=== PATIENT | male | born 1975 | race African-American/Black ===

== ENCOUNTER → 2017-10-22 | Outpatient (REF) | payer BC | LOC: M SFHCLERA 18:01 | DX: R50.9 Fever, unspecified (principal) ==

== ENCOUNTER → 2018-01-07 | Outpatient (REF) | payer BC | LOC: M SFHCLERA 18:51 | DX: J02.9 Acute pharyngitis, unspecified (principal) ==

== ENCOUNTER → 2019-01-01 | Outpatient (CLI) | payer BC ==
[2019-01-01 19:30] LABS: BLOOD UREA NITROGEN 11 MG/DL (7-18); CALCIUM LEVEL 8.1 MG/DL (8.5-10.1); CARBON DIOXIDE LEVEL 27 MEQ/L (21-32); CHLORIDE LEVEL 108 MEQ/L (98-107); CREATININE FOR GFR 1.26 MG/DL (0.70-1.30); GLOMERULAR FILTRATION RATE > 60.0 (>60); GLUCOSE, FASTING 90 MG/DL (70-100); POTASSIUM SERUM 4.3 MEQ/L (3.5-5.1); SODIUM LEVEL 142 MEQ/L (136-145)
[2019-01-01 19:39] LABS: TESTOSTERONE 239 NG/DL (241-827)
== END ==
LOC: M WUC 16:53
PROVIDERS: ATTEND Nurse Practitioner Family
DX: R68.82 Decreased libido (principal)

== ENCOUNTER → 2019-01-09 | Outpatient (CLI) | payer BC ==
[2019-01-12 10:24] LABS: TESTOSTERONE FREE (DIRECT) 4.5 pg/mL (6.8-21.5)
== END ==
LOC: M WUC 13:44
PROVIDERS: ATTEND Nurse Practitioner Family
DX: E29.1 Testicular hypofunction (principal)

== ENCOUNTER → 2019-02-03 | Outpatient (CLI) | payer BC ==
[2019-02-03 13:03] LABS: FOLLICLE STIMULATING HORMONE 3.6 mIU/mL (1.4-18.1); LUTEINIZING HORMONE 3.6 mIU/mL (1.5-9.3); PROLACTIN 5.9 NG/ML (2.1-17.7)
== END ==
LOC: M WUC 08:43
PROVIDERS: ATTEND Internal Medicine Endocrinology, Diabetes & Metabolism
DX: E29.1 Testicular hypofunction (principal)

== ENCOUNTER → 2019-02-06 | Outpatient (CLI) | payer BC ==
[2019-02-06 14:33] LABS: PROSTATIC SPECIFIC AG MONITOR 0.6 NG/ML (< 4.00)
[2019-02-12 00:06] LABS: TESTOSTERONE %FREE+WEAKLY BOUN 27.3 % (9.0-46.0); TESTOSTERONE FREE+WEAKLY BOUND 87.4 ng/dL (40.0-250.0); TESTOSTERONE TOTAL 320 ng/dL (264-916)
== END ==
LOC: M WUC 09:19
PROVIDERS: ATTEND Internal Medicine Endocrinology, Diabetes & Metabolism
DX: E29.1 Testicular hypofunction (principal)

== ENCOUNTER → 2019-02-15 | Outpatient (REF) | payer BC ==
[~2019-02-15] MED LIST: AMOX1SUS19 PO; AUGM250S13 PO; CAND4TAB PO; IBUP-1092 PO; LANS30CA PO
== END ==
LOC: M LAB REF 09:44
PROVIDERS: ATTEND Physician Assistant
DX: J03.80 Acute tonsillitis due to other specified organisms (principal)

== ENCOUNTER 2019-02-17 16:33 | Observation (INO) | payer BC ==
[~2019-02-17] VITALS: Ht 180.3 cm; Wt 128.4 kg
[2019-02-17] MEDS ORDERED: AUGM250S13 PO (16:39)
[2019-02-17] MEDS ORDERED: NS 1,000 ML IV ONE (17:30)
[2019-02-17] MEDS ORDERED: AMPICILLIN SOD/SULBACTAM SOD 1.5 GM in D5W MINI-BAG PLUS 50 ML IV ONE (17:30)
[2019-02-17 17:48] LABS: BASO # 0.1 10^3/uL (0.0-0.2); BASO % 0.6 % (0.0-1.0); EOS # 0.2 10^3/uL (0.0-0.50); EOS % 1.8 % (0.0-3.0); HEMATOCRIT 42.2 % (42.0-52.0); LYMPH # 2.3 10^3/uL (1.5-4.5); LYMPH % 18.7 % (24.0-44.0); MEAN CORPUSCULAR HEMOGLOBIN 27.7 pg (27.0-33.0); MEAN CORPUSCULAR HGB CONC 35.5 g/dl (32.0-36.5); MEAN CORPUSCULAR VOLUME 77.9 fl (80.0-96.0); MONO # 0.7 10^3/uL (0.0-0.8); MONO % 5.6 % (0.0-5.0); NEUTROPHILS # 9.2 10^3/uL (1.8-7.7); PLATELET COUNT, AUTOMATED 282 10^3/uL (150-450); RED BLOOD COUNT 5.42 10^6/uL (4.30-6.10); WHITE BLOOD COUNT 12.5 10^3/uL (4.0-10.0)
[2019-02-17 18:06] LABS: INR 1.22; PROTHROMBIN TIME 15.6 SECONDS (12.1-14.4)
[2019-02-17 18:07] LABS: PARTIAL THROMBOPLASTIN TIME 46.2 SECONDS (25.4-37.6)
[2019-02-17 18:17] LABS: ALBUMIN 4.1 GM/DL (3.2-5.2); ALT/SGPT 36 U/L (12-78); BILIRUBIN,DIRECT 0.2 MG/DL (0.0-0.2); BILIRUBIN,TOTAL 1.1 MG/DL (0.2-1.0); BLOOD UREA NITROGEN 9 MG/DL (7-18); CALCIUM LEVEL 8.9 MG/DL (8.5-10.1); CARBON DIOXIDE LEVEL 31 MEQ/L (21-32); CHLORIDE LEVEL 103 MEQ/L (98-107); CREATININE FOR GFR 1.19 MG/DL (0.70-1.30); GLOMERULAR FILTRATION RATE > 60.0 (>60); GLUCOSE, FASTING 93 MG/DL (70-100); POTASSIUM SERUM 4.3 MEQ/L (3.5-5.1); SODIUM LEVEL 138 MEQ/L (136-145); TOTAL PROTEIN 8.3 GM/DL (6.4-8.2)
[2019-02-17] MEDS ORDERED: ISOVUE-370 76% 100ML VIAL (Q9967) As Ordered ONE (18:31)
[2019-02-17 19:07] LABS: ERYTHROCYTE SEDIMENTATION RATE 43 mm/hr (0-15)
--- NOTE | 2019-02-17 20:31 | REPVR ---
EXAM: CT Neck With Contrast EXAM DATE/TIME: 02/17/2019 7:48 PM CLINICAL HISTORY: 43 years old, male; Painful swallowing; Additional info: Tonsilar abscess TECHNIQUE: Imaging protocol: Axial computed tomography images of the neck with intravenous contrast. Coronal and sagittal reformatted images were created and reviewed. Radiation optimization: All CT scans at this facility use at least one of these dose optimization techniques: automated exposure control; mA and/or kV adjustment per patient size (includes targeted exams where dose is matched to clinical indication); or iterative reconstruction. Contrast material: ISO 370; Contrast volume: 75 ml; Contrast route: IV; COMPARISON: No relevant prior studies available. FINDINGS: Sinuses: Minimal right maxillary sinus mucosal thickening. Nasopharynx: Normal. Oropharynx: Mildly enlarged right tonsil with peripheral enhancing abscess. The wall measures approximately 6 mm or more and the central abscess measures approximately 19 x 10 x 17 mm. There is slight displacement and compression of the adjacent airway. Hypopharynx: There is slight edema extending caudally with absence of the right piriform sinus. Larynx: The epiglottis is normal. Retropharyngeal space: Normal. Submandibular/Parotid glands: Normal. Glands are normal in size. Thyroid: Normal. No enlarged or calcified nodules. Lymph nodes: Borderline right cervical adenopathy with mildly enlarged nodes measuring up to 1.8 x 1.2 x 2.8 cm. Trachea: Visualized trachea is unremarkable. Lungs: Normal as visualized. Vasculature: No acute findings. Bones/joints: Normal. No acute fracture. IMPRESSION: 1. Right tonsillar enlargement with tonsillar abscess. 2. Borderline right cervical adenopathy. 3. Minimal right maxillary sinus disease. Electronically signed by: Avelino Rondon On 02/17/2019 20:31:02 PM
[2019-02-17] MEDS ORDERED: AMOX1SUS19 PO (21:17)
[2019-02-17] MEDS ORDERED: IBUP-1092 PO (21:17)
[2019-02-17] MEDS ORDERED: LANS30CA PO (21:17)
[2019-02-17] MEDS ORDERED: CAND4TAB PO (21:17)
[2019-02-17] MEDS ORDERED: ACETAMINOPHEN TAB 650MG DOSE (2X325MG) PO PRN (22:00)
[2019-02-17] MEDS ORDERED: HYDROCORTISONE 100 MG/2 ML VIAL (J1720) IV ONE (22:00)
[2019-02-17] MEDS: ENOXAPARIN 30 MG/0.3 ML SYR (J1650) SC SCH (22:37)
[2019-02-17 23:00] VITALS: BP 149/95
[2019-02-17] MEDS: PIPERACILLIN/TAZOBACTAM SOD 3.375 GM in D5W MINI-BAG PLUS 50 ML IV SCH (23:35)
[2019-02-18] MEDS ORDERED: KETOROLAC 30 MG/ML VIAL (J1885) IV PRN (02:00)
[2019-02-18 04:00] VITALS: BP 133/80
[2019-02-18] MEDS: PIPERACILLIN/TAZOBACTAM SOD 3.375 GM in D5W MINI-BAG PLUS 50 ML IV SCH ×3 (06:27→17:49)
[2019-02-18 08:00] VITALS: BP 136/79
[2019-02-18 08:48] LABS: HEMATOCRIT 40.8 % (42.0-52.0); HEMOGLOBIN 14.3 g/dl (13.5-17.5); MEAN CORPUSCULAR HEMOGLOBIN 27.1 pg (27.0-33.0); MEAN CORPUSCULAR VOLUME 77.4 fl (80.0-96.0); PLATELET COUNT, AUTOMATED 285 10^3/uL (150-450); RED BLOOD COUNT 5.27 10^6/uL (4.30-6.10); WHITE BLOOD COUNT 12.2 10^3/uL (4.0-10.0)
[2019-02-18] MEDS: OMEPRAZOLE 20 MG CAP PO SCH (09:13)
[2019-02-18] MEDS: CANDESARTAN 4MG TABLET PO SCH (09:14)
[2019-02-18 09:17] LABS: BLOOD UREA NITROGEN 9 MG/DL (7-18); CALCIUM LEVEL 9.1 MG/DL (8.5-10.1); CARBON DIOXIDE LEVEL 27 MEQ/L (21-32); CHLORIDE LEVEL 104 MEQ/L (98-107); GLOMERULAR FILTRATION RATE > 60.0 (>60); GLUCOSE, FASTING 104 MG/DL (70-100); POTASSIUM SERUM 3.9 MEQ/L (3.5-5.1); SODIUM LEVEL 137 MEQ/L (136-145)
--- NOTE | 2019-02-18 13:23 | HPE ---
DATE OF ADMISSION: 02/17/2019 Patient is a 43-year-old male with a past medical history of gastroesophageal reflux disease who presented to the emergency room (ER) due to sore throat, dysphagia, and odynophagia since Saturday. It was reported that patient was evaluated at urgent care on Saturday and was diagnosed with a paratonsillar abscess and was started on by mouth Augmentin, however this sore throat, dysphagia, odynophagia gradually worsened. Patient has been tolerating by mouth solid and clear liquid diet with decreased oral intake due to dysphagia and odynophagia. He also reported right ear pain without ear discharge. Patient did report right-sided jaw pain but denies any frontal or maxillary sinus pain. He reports this is the first time that he has these symptoms. Denies drooling, trismus, or fever. Patient reported that he has some chills but denies any lymph node enlargement that he noticed. REVIEW OF SYSTEMS: GENERAL: Positive for chills, negative for fever. HEENT: Positive for right ear pain, sore throat, odynophagia, dysphagia. Positive for right jaw pain. Denies any vision changes, rhinorrhea, ear discharge. CHEST: Denies any chest pain or shortness of breath. GASTROINTESTINAL (GI): Denies any diarrhea, constipation, or abdominal pain. PAST MEDICAL HISTORY: Gastroesophageal reflux disease, (GERD), environmental allergies, appendicitis. PAST SURGICAL HISTORY: Appendectomy, discectomy, both were reported as being in the . HOME MEDICATIONS: - Augmentin 600 mg by mouth twice a day with 600 mg/5 mL suspension - candesartan cilexetil 4 mg tablet - ibuprofen 200 mg tablets, 400 mg by mouth three times a day as needed for pain - lansoprazole 30 mg capsule by mouth twice a day ALLERGIES: Bee sting, reaction angioedema. SOCIAL HISTORY: Patient was a past smoker, smokes about two packs every 3 days for 4-5 years. Occasional alcohol use, less than two drinks per day, denies binge drinking behavior. Denies any recreational drug use. FAMILY HISTORY: No pertinent family history was reported. PHYSICAL EXAMINATION: VITAL SIGNS: Temperature 98.8, pulse 86, respiratory rate 18, blood pressure 146/88, pulse oximetry 97% on room air. GENERAL: Patient is alert and oriented times three in no to minimal distress. No tripod positions. No drooling noted. HEENT: Head normocephalic, atraumatic. Conjunctivae was grossly unremarkable. Bilateral external ear canal unremarkable. Mild effusion behind tympanic membrane on the right with left tympanic membrane grossly unremarkable. Nasal mucosa non-boggy and nonerythematous. Unable to visualize tonsil or paratonsillar abscess due to visual field limitation. No obvious uvula deviation noted. None to mild erythema in throat. NECK: No obvious lymphadenopathy noted. HEART: Regular rate rhythm, no murmur, normal S1, S2. LUNGS: Clear to auscultation bilaterally. No rales, wheezing, or rhonchi. No obvious dyspnea or accessory muscle use noted. GI: Abdomen soft, no guarding, or distention. Bowel sounds auscultated in all four quadrants. IMAGING: Neck CT: Right tonsillar enlargement with tonsillar abscess. Borderline right cervical adenopathy. Minimal right maxillary sinus disease. LABORATORY DATA: CBC: WBC 12.5, hemoglobin 15.0, hematocrit 42.2, platelets 282, neutrophil predominance at 73.0%. BMP: Sodium 138, potassium 4.3, chloride 103, carbon dioxide 31, anion gap 4, BUN 9, creatinine 1.19, alkaline phosphatase 120, CRP 5.4. ASSESSMENT AND PLAN: 1. Right-sided tonsillar abscess. CT of the neck with contrast noted. Right tonsillar enlargement with tonsillar abscess and minimal right maxillary sinus disease. Patient has leukocytosis at 12.5. Positive for chills but no fever was noted. Patient also presents with odynophagia and dysphagia. Reported that he was able to tolerate solid and liquid oral intake. At this time, we will have the patient on IV Zosyn 3.375 grams every 6 hours. Patient already received ampicillin-sulbactam in the emergency room (ER). One time dose of hydrocortisone IV 100 mg ordered. Patient will be on Tylenol every 4 hours as needed for pain or fever. Ear, nose, and throat (ENT) consultation is ordered. Vital signs as scheduled. Activity as tolerated. Oxygen therapy ordered to maintain pulse oximetry greater than 94%. Complete blood count (CBC) and basic metabolic panel (BMP) scheduled for tomorrow morning. Patient will be on regular diet as tolerated. Will consider IV fluid if patient continues to have decreased oral intake and/or signs of dehydration. Continue to monitor the patient closely. 2. Past medical history of gastroesophageal reflux disease (GERD). On home medication lansoprazole. Continue home medications for GERD. Edited 02/18/2019 @ 1322 [facility] GME Attending Attestation I have examined the patient at bedside along with resident physician on admission day. I have discussed assessment and treatment plan with the resident physician. I will continue to follow up the patient during hospital stay. Dr Jules Parra MD [facility] HOSPITALChevy
--- NOTE | 2019-02-18 13:23 | IPN ---
DATE: 02/18/2019 SUBJECTIVE: The patient tells me he is feeling better. He has less swelling in his neck. He denies fevers, chills, difficulty with shortness of breath. OBJECTIVE: VITAL SIGNS: Temperature 97.3, pulse 77, respiratory rate 18, blood pressure 136/79, oxygen saturation 97% on room air. GENERAL: He is a pleasant middle aged -[place] male up ambulating in his room, accompanied by his , he does not appear to be in any acute distress. HEENT: Submandibular tender lymphadenopathy on the right. Moist mucous membranes. No elevation of central venous pressure (CVP). No stridor. CARDIOVASCULAR EXAM: S1 and S2 regular. RESPIRATORY EXAM: Clear. ABDOMINAL EXAM: Obese. Bowel sounds present. The abdomen is soft. EXTREMITIES: No clubbing, cyanosis, or edema. LABORATORY STUDIES: WBC 12.2, down from 12.5, hemoglobin 14.3, platelet count 285. Chemistry panel - sodium 137, potassium 3.9, chloride 104, bicarb 27, BUN 9, creatinine 1.2. Blood cultures have been drawan and are pending. IMAGING: The patient did have a CT scan of his neck which revealed right tonsillar enlargement with tonsillar abscess, borderline right cervical lymphadenopathy. Minimal right axillary sinus disease. ASSESSMENT/PLAN: This is a 43-year-old man with right tonsillar abscess. PROBLEMS: 1. Right tonsillar abscess. At the time of this dictation, it is noted that there is no history and physical available in the chart. The patient does appear to be improving. I did speak with Dr. Villa and ensured that a consultation is in place. He assured that he would have the patient transferred down to the ENT clinic for better direct visualization of his tonsils and assess for possible drainage. At this time it appears as though he is improving on Zosyn. As such, he will continue with his antibiotics. He is also on Toradol for pain, which he has not required. He is continued on Tylenol. 2. Hypertension. He is continued on candesartan. 3. Gastroesophageal reflux disease (GERD). He is continued on omeprazole. 4. Deep vein thrombosis (DVT) prophylaxis. He is on Lovenox. DISPOSITION: Pending ENT evaluation and clinical improvement. Possibly home within the next 24-48 hours.
[2019-02-18 16:00] VITALS: BP 148/82
[2019-02-18] MEDS: ENOXAPARIN 30 MG/0.3 ML SYR (J1650) SC SCH (21:00)
[2019-02-19] VITALS: BP 136/78
[2019-02-19] MEDS: PIPERACILLIN/TAZOBACTAM SOD 3.375 GM in D5W MINI-BAG PLUS 50 ML IV SCH ×2 (00:33→06:09)
[2019-02-19 06:57] LABS: HEMATOCRIT 36.3 % (42.0-52.0); HEMOGLOBIN 12.7 g/dl (13.5-17.5); MEAN CORPUSCULAR HEMOGLOBIN 27.3 pg (27.0-33.0); MEAN CORPUSCULAR VOLUME 78.1 fl (80.0-96.0); PLATELET COUNT, AUTOMATED 250 10^3/uL (150-450); RED BLOOD COUNT 4.65 10^6/uL (4.30-6.10); WHITE BLOOD COUNT 7.3 10^3/uL (4.0-10.0)
[2019-02-19 07:21] LABS: BLOOD UREA NITROGEN 11 MG/DL (7-18); CALCIUM LEVEL 8.3 MG/DL (8.5-10.1); CARBON DIOXIDE LEVEL 29 MEQ/L (21-32); CHLORIDE LEVEL 106 MEQ/L (98-107); CREATININE FOR GFR 1.25 MG/DL (0.70-1.30); GLOMERULAR FILTRATION RATE > 60.0 (>60); GLUCOSE, FASTING 102 MG/DL (70-100); POTASSIUM SERUM 4.1 MEQ/L (3.5-5.1); SODIUM LEVEL 140 MEQ/L (136-145)
[2019-02-19 08:00] VITALS: BP 127/70
[2019-02-19] MEDS ORDERED: CLEO300C2 PO (08:26)
[2019-02-19] MEDS: OMEPRAZOLE 20 MG CAP PO SCH (09:00)
[2019-02-19] MEDS: CANDESARTAN 4MG TABLET PO SCH (09:00)
--- NOTE | 2019-02-19 16:46 | DSES ---
DATE OF ADMISSION: 02/17/2019 DATE OF DISCHARGE: 02/19/2019 DISCHARGE DIAGNOSIS: Tonsillar abscess. SECONDARY DIAGNOSES: Hypertension, gastroesophageal reflux disease. HOSPITAL COURSE: The patient is a 43-year-old man who presented with dysphagia, odynophagia, who on CT imaging done in the emergency room was found to have a right tonsillar abscess. A consult was placed to ear, nose, and throat, Dr. Villa, who saw the patient on 02/18/2019, and the patient was admitted to observation status. He was wheeled down to the clinic where Dr. Villa was able to do direct visualization. He felt as though there was no need for any drainage and felt that he would improve with antibiotics which the patient did. The patient remained in hospital receiving IV Zosyn. Dr. Villa recommended discharging the patient on clindamycin 300 mg three times a day. The patient did improve while hospitalized on antibiotics. His odynophagia and dysphagia resolved and he remained afebrile. He was not tachycardic. His leukocytosis resolved. SUBJECTIVE: This morning the patient tells me he is feeling well, eating well, has no complaints, and would like to go home and return to work. OBJECTIVE: VITAL SIGNS: Temperature 98.4, pulse 70, respiratory rate 18, blood pressure 127/70, oxygen saturation 96% on room air. GENERAL: He is a pleasant, male, obese, sitting up in bed, eating luna, in no acute distress. HEENT: Cranial nerves II-XII are grossly intact. He has a tender right submandibular lymph node. Face is symmetric. Tongue is midline. No stridor. CARDIOVASCULAR EXAM: S1, S2, regular. RESPIRATORY EXAM: Clear. ABDOMINAL EXAM: Obese. EXTREMITIES: No clubbing, cyanosis, or edema. LABORATORY STUDIES: WBC 7.3, hemoglobin 12.7, platelet count 250. Chemistry panel: Sodium 140, potassium 4.1, chloride 106, bicarbonate 29, BUN 11, creatinine 1.25, INR 1.2. Blood cultures were negative. IMAGING: Patient had a CT scan of the neck that revealed right tonsillar enlargement with tonsillar abscess. Borderline right cervical adenopathy. Minimal right axillary sinus disease. ASSESSMENT AND PLAN: This is a 43-year-old man with right tonsil infection. 1. Tonsillar abscess. Dr. Villa' help was greatly appreciated. He did not feel any need for incision and drainage (I and D) or needle drainage. The patient did receive 24 hours of antibiotics and at this time will be discharged home on clindamycin 300 mg three times a day. Close followup with his primary care provider (PCP). He has been advised to reach out to the ear, nose, and throat (ENT) clinic should he have any recurrence in his symptoms or should he fail to completely resolve or have fevers. At this time, he does appear to be resolving and doing quite well. 2. Hypertension. He was continued on candesartan. 3. Gastroesophageal reflux disease. He was continued on omeprazole. 4. Deep venous thrombosis (DVT) prophylaxis. He has been on Lovenox while hospitalized. DISPOSITION: He is being discharged home to the care of his family. He is independent of his activities of daily living (ADLs). His clinical syndrome is resolving. He is clinically improved. He is to followup with his PCP within 7 days and ENT as needed. His activity and diet are as prior to admission. MEDICATIONS: At the time of discharge: - clindamycin 300 mg three times a day for 7 days - candesartan 4 mg daily - ibuprofen 800 mg three times a day as needed for pain - lansoprazole 30 mg twice a day 45 minutes spent organizing disposition.
== END 2019-02-19 10:35 | disposition home or self-care (01) ==
LOC: M ED 16:33 → M ED INP 21:33 → M PED 23:01
PROVIDERS: ADMIT Internal Medicine; ATTEND Internal Medicine
DX: J36 Peritonsillar abscess (principal); D72.829 Elevated white blood cell count, unspecified; I10 Essential (primary) hypertension; K21.9 Gastro-esophageal reflux disease without esophagitis; Z79.899 Other long term (current) drug therapy
CPT/HCPCS: 36415; 70491; 80048; 80076; 83605; 85025; 85027; 85610; 85652; 85730; 86140; 87040; 96361; 96365; 96375; 96376; 99284; J1650; J1720; J2543; Q9967

== ENCOUNTER → 2019-03-26 | Outpatient (CLI) | payer BC ==
[~2019-03-26] MED LIST changes: +CLEO300C2 PO
--- NOTE | 2019-03-26 16:59 | REP ---
Left hip two views History: Hip pain There is no acute fracture or dislocation. There is mild narrowing of the joint space with associated sclerosis. Osteophytes are present on the acetabulum and femur. Impression: Degenerative change as described above. Electronically Signed by Austin Bell MD 03/26/2019 04:51 P
== END ==
LOC: M WUC 16:38
PROVIDERS: ATTEND Nurse Practitioner Family
DX: M16.12 Unilateral primary osteoarthritis, left hip (principal); M25.752 Osteophyte, left hip

== ENCOUNTER → 2019-07-03 | Outpatient (REF) | payer BC ==
[~2019-07-03] MED LIST changes: -IBUP-1092 PO; +IBUP-1764 PO
[2019-07-03 12:16] LABS: BASO # 0.1 10^3/uL (0.0-0.2); BASO % 0.7 % (0.0-1.0); EOS # 0.2 10^3/uL (0.0-0.5); EOS % 2.7 % (0.0-3.0); HEMATOCRIT 40.4 % (42.0-52.0); HEMOGLOBIN 14.1 g/dl (13.5-17.5); LYMPH # 2.6 10^3/uL (1.5-5.0); LYMPH % 35.3 % (24.0-44.0); MEAN CORPUSCULAR HEMOGLOBIN 26.7 pg (27.0-33.0); MEAN CORPUSCULAR HGB CONC 34.9 g/dl (32.0-36.5); MEAN CORPUSCULAR VOLUME 76.5 fl (80.0-96.0); MONO # 0.5 10^3/uL (0.0-0.8); MONO % 6.5 % (0.0-5.0); NEUTROPHILS % 54.5 % (36.0-66.0); PLATELET COUNT, AUTOMATED 243 10^3/uL (150-450); RED BLOOD COUNT 5.28 10^6/uL (4.30-6.10); WHITE BLOOD COUNT 7.4 10^3/uL (4.0-10.0)
[2019-07-03 12:58] LABS: ALBUMIN 4.1 GM/DL (3.2-5.2); ALT/SGPT 46 U/L (12-78); BILIRUBIN,TOTAL 0.7 MG/DL (0.2-1.0); BLOOD UREA NITROGEN 14 MG/DL (7-18); CALCIUM LEVEL 9.3 MG/DL (8.5-10.1); CARBON DIOXIDE LEVEL 28 MEQ/L (21-32); CHLORIDE LEVEL 105 MEQ/L (98-107); CHOLESTEROL LEVEL 247 MG/DL (<200); CHOLESTEROL RISK RATIO 6.333 (<5); CREATININE FOR GFR 1.13 MG/DL (0.70-1.30); FREE T4 0.72 NG/DL (0.76-1.46); GLOMERULAR FILTRATION RATE > 60.0 (>60); GLUCOSE, FASTING 76 MG/DL (70-100); HDL CHOLESTEROL 39 MG/DL (>40); LDL CHOLESTEROL 178 MG/DL (<100); MAGNESIUM LEVEL 2.1 MG/DL (1.8-2.4); NON-HDL-C 208 MG/DL; POTASSIUM SERUM 4.5 MEQ/L (3.5-5.1); SODIUM LEVEL 141 MEQ/L (136-145); TOTAL PROTEIN 7.4 GM/DL (6.4-8.2); TRIGLYCERIDES LEVEL 151 MG/DL (<150)
[2019-07-03 14:21] LABS: HEMOGLOBIN A1c 5.8 %
== END ==
LOC: M SFHCPLAZ 09:52
PROVIDERS: ATTEND Nurse Practitioner Family
DX: I10 Essential (primary) hypertension (principal); E78.5 Hyperlipidemia, unspecified

== ENCOUNTER → 2019-07-13 | Outpatient (CLI) | payer BC ==
--- NOTE | 2019-07-13 07:57 | REP ---
Clinical: Hypertension and chronic medical renal disease. Technique: Judge scale and color Doppler evaluation of the kidneys and renal vasculature using curved array transducer. Findings: The kidneys are essentially normal in contour size and echogenicity and reniform shape without hydronephrosis, nephrolithiasis, cystic or renal mass lesion. Right kidney measures 11.5 x 5.9 x 6.4 cm . Left kidney measures 11.5 x 5.5 x 6.2 cm . Bladder is incompletely distended and grossly normal by current evaluation. Color Doppler evaluation of the renal vasculature is limited due to overlying body habitus and bowel gas. As such, main renal arteries are not evaluated. Right Kidney: Resistive indices: 0.54 - 0.55 . Acceleration times: 0.055 - 0.069 . Left kidney: Resistive indices: 0.52 - 0.60 . Acceleration times: 0.039 - 0.056 . Impression: 1. Normal appearance the bilateral kidneys. 2. Limited Doppler interrogation without secondary evidence of renal arterial stenosis. Electronically Signed by He Carroll MD 07/13/2019 07:49 A
== END ==
LOC: M RAD 06:35
PROVIDERS: ATTEND Nurse Practitioner Family
DX: I10 Essential (primary) hypertension (principal)

== ENCOUNTER → 2019-08-14 | Outpatient (CLI) | payer BC ==
[2019-08-20 00:07] LABS: TESTOSTERONE %FREE+WEAKLY BOUN 16.9 % (9.0-46.0); TESTOSTERONE FREE+WEAKLY BOUND 63.4 ng/dL (40.0-250.0); TESTOSTERONE TOTAL 375 ng/dL (264-916)
== END ==
LOC: M LAB 07:15
PROVIDERS: ATTEND Internal Medicine Endocrinology, Diabetes & Metabolism
DX: E29.1 Testicular hypofunction (principal)

== ENCOUNTER → 2019-08-14 | Outpatient (REF) | payer BC ==
[2019-08-18 15:15] LABS: FREE T4 0.71 NG/DL (0.76-1.46); THYROID STIMULATING HORMONE 2.68 uIU/ML (0.358-3.740)
== END ==
LOC: M SFHCPLAZ 14:49
PROVIDERS: ATTEND Nurse Practitioner Family
DX: E03.9 Hypothyroidism, unspecified (principal); R73.09 Other abnormal glucose

== ENCOUNTER → 2020-06-17 | Outpatient (CLI) | payer BC | LOC: M WUC 10:42 | PROVIDERS: ATTEND Internal Medicine Endocrinology, Diabetes & Metabolism | DX: E29.1 Testicular hypofunction (principal) ==

== ENCOUNTER → 2020-12-22 | Outpatient (CLI) | payer BC ==
[2020-12-22 07:38] LABS: BASO # 0.1 10^3/uL (0.0-0.2); BASO % 0.9 % (0.0-1.0); EOS # 0.3 10^3/uL (0.0-0.5); EOS % 4.6 % (0.0-3.0); HEMOGLOBIN 14.4 g/dl (13.5-17.5); LYMPH # 2.3 10^3/uL (1.5-5.0); LYMPH % 33.1 % (24.0-44.0); MEAN CORPUSCULAR HEMOGLOBIN 26.3 pg (27.0-33.0); MEAN CORPUSCULAR HGB CONC 34.3 g/dl (32.0-36.5); MEAN CORPUSCULAR VOLUME 76.6 fl (80.0-96.0); MONO # 0.5 10^3/uL (0.0-0.8); MONO % 6.8 % (2.0-8.0); NEUTROPHILS # 3.7 10^3/uL (1.5-8.5); NEUTROPHILS % 54.3 % (36.0-66.0); PLATELET COUNT, AUTOMATED 241 10^3/uL (150-450); RED BLOOD COUNT 5.48 10^6/uL (4.30-6.10); WHITE BLOOD COUNT 6.8 10^3/uL (4.0-10.0)
[2020-12-22 07:57] LABS: ALBUMIN 3.9 GM/DL (3.2-5.2); ALT/SGPT 41 U/L (12-78); BILIRUBIN,TOTAL 0.9 MG/DL (0.2-1.0); BLOOD UREA NITROGEN 14 MG/DL (7-18); CALCIUM LEVEL 8.6 MG/DL (8.5-10.1); CARBON DIOXIDE LEVEL 28 MEQ/L (21-32); CHLORIDE LEVEL 107 MEQ/L (98-107); CHOLESTEROL LEVEL 245 MG/DL (<200); CHOLESTEROL RISK RATIO 6.282 (<5); CREATININE FOR GFR 1.19 MG/DL (0.70-1.30); GLOMERULAR FILTRATION RATE > 60.0 (>60); GLUCOSE, FASTING 88 MG/DL (70-100); HDL CHOLESTEROL 39 MG/DL (>40); LDL CHOLESTEROL 174 MG/DL (<100); NON-HDL-C 206 MG/DL; SODIUM LEVEL 138 MEQ/L (136-145); TOTAL PROTEIN 7.3 GM/DL (6.4-8.2); TRIGLYCERIDES LEVEL 161 MG/DL (<150)
[2020-12-24 00:06] LABS: PSA TOTAL 0.5 ng/mL (0.0-4.0)
== END ==
LOC: M LAB 07:16
PROVIDERS: ATTEND Physician Assistant
DX: G47.33 Obstructive sleep apnea (adult) (pediatric) (principal); I10 Essential (primary) hypertension; E66.8 Other obesity; Z12.5 Encounter for screening for malignant neoplasm of prostate

== ENCOUNTER → 2021-06-14 | Outpatient (CLI) | payer BC ==
[2021-06-14 16:42] LABS: ALBUMIN 3.8 GM/DL (3.2-5.2); BILIRUBIN,DIRECT 0.2 MG/DL (0.0-0.2); BILIRUBIN,TOTAL 1.2 MG/DL (0.2-1.0); CHOLESTEROL RISK RATIO 4.794 (<5); FREE T4 0.68 NG/DL (0.76-1.46); THYROID STIMULATING HORMONE 2.12 uIU/ML (0.358-3.740); TOTAL PROTEIN 7.3 GM/DL (6.4-8.2)
== END ==
LOC: M WUC 11:03
PROVIDERS: ATTEND Physician Assistant
DX: E78.2 Mixed hyperlipidemia (principal)

== ENCOUNTER → 2022-01-25 | Outpatient (CLI) | payer BC ==
[~2022-01-25] MED LIST changes: -CAND4TAB PO; +CAND4TAB7 PO
[2022-01-25 09:16] LABS: BASO # 0.1 10^3/uL (0.0-0.2); BASO % 0.7 % (0.0-1.0); EOS # 0.2 10^3/uL (0.0-0.5); EOS % 3.5 % (0.0-3.0); HEMATOCRIT 40.6 % (42.0-52.0); LYMPH # 2.2 10^3/uL (1.5-5.0); LYMPH % 32.2 % (24.0-44.0); MEAN CORPUSCULAR HEMOGLOBIN 26.2 pg (27.0-33.0); MEAN CORPUSCULAR HGB CONC 34.5 g/dl (32.0-36.5); MEAN CORPUSCULAR VOLUME 75.9 fl (80.0-96.0); MONO # 0.5 10^3/uL (0.0-0.8); MONO % 6.5 % (2.0-8.0); NEUTROPHILS # 3.9 10^3/uL (1.5-8.5); PLATELET COUNT, AUTOMATED 241 10^3/uL (150-450); RED BLOOD COUNT 5.35 10^6/uL (4.30-6.10); WHITE BLOOD COUNT 6.9 10^3/uL (4.0-10.0)
[2022-01-25 09:53] LABS: ALT/SGPT 43 U/L (12-78); BILIRUBIN,TOTAL 1.3 MG/DL (0.2-1.0); BLOOD UREA NITROGEN 10 MG/DL (7-18); CALCIUM LEVEL 8.7 MG/DL (8.5-10.1); CARBON DIOXIDE LEVEL 29 MEQ/L (21-32); CHLORIDE LEVEL 107 MEQ/L (98-107); CHOLESTEROL LEVEL 152 MG/DL (<200); CREATININE FOR GFR 1.14 MG/DL (0.70-1.30); GLOMERULAR FILTRATION RATE > 60.0 (>60); GLUCOSE, FASTING 81 MG/DL (70-100); HDL CHOLESTEROL 34 MG/DL (>40); POTASSIUM SERUM 4.2 MEQ/L (3.5-5.1); SODIUM LEVEL 140 MEQ/L (136-145); TRIGLYCERIDES LEVEL 148 MG/DL (<150)
[2022-01-25 09:54] LABS: ALBUMIN 3.8 GM/DL (3.2-5.2); FREE T4 0.74 NG/DL (0.76-1.46); LDL CHOLESTEROL 88 MG/DL (<100); NON-HDL-C 118 MG/DL; TOTAL PROTEIN 7.3 GM/DL (6.4-8.2)
[2022-01-25 18:17] LABS: HEMOGLOBIN A1c 5.6 %
== END ==
LOC: M LAB 07:32
PROVIDERS: ATTEND Family Medicine
DX: I10 Essential (primary) hypertension (principal); G47.33 Obstructive sleep apnea (adult) (pediatric); R73.9 Hyperglycemia, unspecified

== ENCOUNTER 2022-05-09 08:40 | Day surgery (SDC) | payer BC ==
[~2022-05-09] VITALS: Ht 180.3 cm; Wt 129.9 kg
[~2022-05-09 08:40] MED LIST changes: +NS 1,000 ML IV ONE
[2022-05-09] MEDS ORDERED: propofoL 200 MG/20 ML VIAL As Ordered ONE (09:47)
[2022-05-09] MEDS ORDERED: LIDOCAINE 2% 100MG/5ML SDV (FOR ANES.) As Ordered ONE (09:48)
[2022-05-09 10:05] VITALS: BP 149/95
== END 2022-05-09 10:20 | disposition home or self-care (01) ==
LOC: M OPP 08:40
PROVIDERS: ATTEND Surgery
DX: Z12.11 Encounter for screening for malignant neoplasm of colon (principal); K57.30 Diverticulosis of large intestine without perforation or abscess without bleeding; K64.1 Second degree hemorrhoids; I10 Essential (primary) hypertension; G47.30 Sleep apnea, unspecified; Z79.02 Long term (current) use of antithrombotics/antiplatelets; Z79.899 Other long term (current) drug therapy; Z99.89 Dependence on other enabling machines and devices; Z91.030 Bee allergy status; Z53.8 Procedure and treatment not carried out for other reasons

== ENCOUNTER → 2022-08-23 | Outpatient (CLI) | payer BC ==
[~2022-08-23] MED LIST changes: -NS 1,000 ML IV ONE
== END ==
LOC: M WUC 15:49
PROVIDERS: ATTEND Physician Assistant
DX: S61.217A Laceration without foreign body of left little finger without damage to nail, initial encounter (principal); X58.XXXA Exposure to other specified factors, initial encounter; Y92.9 Unspecified place or not applicable

== ENCOUNTER → 2023-01-25 | Outpatient (CLI) | payer BC ==
[2023-01-25 12:00] LABS: BASO # 0.1 10^3/uL (0.0-0.2); BASO % 0.6 % (0.0-1.0); EOS # 0.3 10^3/uL (0.0-0.5); EOS % 3.9 % (0.0-3.0); HEMATOCRIT 41.4 % (42.0-52.0); HEMOGLOBIN 13.9 g/dl (13.5-17.5); LYMPH # 2.5 10^3/uL (1.5-5.0); LYMPH % 30.5 % (24.0-44.0); MEAN CORPUSCULAR HEMOGLOBIN 25.4 pg (27.0-33.0); MEAN CORPUSCULAR HGB CONC 33.6 g/dl (32.0-36.5); MEAN CORPUSCULAR VOLUME 75.5 fl (80.0-96.0); MONO # 0.6 10^3/uL (0.0-0.8); MONO % 7.3 % (2.0-8.0); NEUTROPHILS # 4.8 10^3/uL (1.5-8.5); NEUTROPHILS % 57.5 % (36.0-66.0); PLATELET COUNT, AUTOMATED 244 10^3/uL (150-450); RED BLOOD COUNT 5.48 10^6/uL (4.30-6.10); WHITE BLOOD COUNT 8.3 10^3/uL (4.0-10.0)
[2023-01-25 12:05] LABS: ALBUMIN 3.9 G/DL (3.2-5.2); ALKALINE PHOSPHATASE 98 U/L (46-116); ALT/SGPT 34 U/L (7.0-40); AST/SGOT 33 U/L (<34); BILIRUBIN,TOTAL 0.8 MG/DL (0.3-1.2); BLOOD UREA NITROGEN 11 MG/DL (9-23); CALCIUM LEVEL 8.9 MG/DL (8.5-10.1); CARBON DIOXIDE LEVEL 30 MMOL/L (20-31); CHLORIDE LEVEL 107 MMOL/L (98-107); CHOLESTEROL LEVEL 217 MG/DL (<200); CHOLESTEROL RISK RATIO 6.14 (<5); CREATININE FOR GFR 1.23 MG/DL (0.70-1.30); GLOMERULAR FILTRATION RATE > 60.0 (>60); GLUCOSE, FASTING 93 MG/DL (60-100); HDL CHOLESTEROL 35.3 MG/DL (>40); LDL CHOLESTEROL 150.1 MG/DL (<100); NON-HDL-C 181.7 MG/DL; POTASSIUM SERUM 4.7 MMOL/L (3.5-5.1); SODIUM LEVEL 141 MMOL/L (136-145); TRIGLYCERIDES LEVEL 158 MG/DL (<150)
[2023-01-25 12:29] LABS: HEMOGLOBIN A1c 5.6 % (4.0-6.0)
== END ==
LOC: M WUC 09:43
PROVIDERS: ATTEND Family Medicine
DX: I10 Essential (primary) hypertension (principal); E78.2 Mixed hyperlipidemia; R73.9 Hyperglycemia, unspecified

== ENCOUNTER → 2023-03-01 | Outpatient (CLI) | payer BC ==
[2023-03-01 11:26] LABS: THYROID STIMULATING HORMONE 2.187 uIU/ML (0.55-4.78)
[2023-03-01 11:27] LABS: FREE T4 0.7 NG/DL (0.89-1.76)
[2023-03-02 15:07] LABS: TESTOSTERONE FREE (DIRECT) 10.3 pg/mL (6.8-21.5)
== END ==
LOC: M WUC 09:22
PROVIDERS: ATTEND Nurse Practitioner Adult Health
DX: R53.83 Other fatigue (principal)

== ENCOUNTER → 2023-03-01 | Outpatient (CLI) | payer BC ==
[~2023-03-01] MED LIST changes: +ISOVUE-300 61% 100ML VIAL As Ordered ONE; +LIDOCAINE 1% MDV 20ML VIAL As Ordered ONE; +TRIAMCINOLONE ACETONIDE SUSP 40MG/ML 1ML VIAL As Ordered ONE
== END ==
LOC: M IRPRO 12:59
PROVIDERS: ATTEND Radiology Practitioner Assistant
DX: M16.12 Unilateral primary osteoarthritis, left hip (principal)
CPT/HCPCS: 20610; 77002; J3301; Q9967

== ENCOUNTER → 2023-03-22 | Outpatient (CLI) | payer BC ==
[~2023-03-22] MED LIST changes: -ISOVUE-300 61% 100ML VIAL As Ordered ONE; -LIDOCAINE 1% MDV 20ML VIAL As Ordered ONE; -TRIAMCINOLONE ACETONIDE SUSP 40MG/ML 1ML VIAL As Ordered ONE
[2023-03-25 17:07] LABS: TESTOSTERONE FREE (DIRECT) 4.2 pg/mL (6.8-21.5)
== END ==
LOC: M WUC 11:09
PROVIDERS: ATTEND Nurse Practitioner Adult Health
DX: E29.1 Testicular hypofunction (principal)

== ENCOUNTER → 2024-04-16 | Outpatient (REF) | payer BC ==
[2024-04-16 12:07] LABS: ALBUMIN 3.8 G/DL (3.2-5.2); ALKALINE PHOSPHATASE 102 U/L (46-116); ALT/SGPT 34 U/L (7.0-40); AST/SGOT 43 U/L (<34); BILIRUBIN,TOTAL 0.7 MG/DL (0.3-1.2); BLOOD UREA NITROGEN 11 MG/DL (9-23); CALCIUM LEVEL 8.9 MG/DL (8.5-10.1); CARBON DIOXIDE LEVEL 29 MMOL/L (20-31); CHLORIDE LEVEL 108 MMOL/L (98-107); CHOLESTEROL LEVEL 154 MG/DL (<200); CHOLESTEROL RISK RATIO 4.26 (<5); CREATININE FOR GFR 1.13 MG/DL (0.70-1.30); GLOMERULAR FILTRATION RATE > 60.0 (>56); GLUCOSE, FASTING 97 MG/DL (60-100); HDL CHOLESTEROL 36.1 MG/DL (>40); LDL CHOLESTEROL 95.5 MG/DL (<100); NON-HDL-C 117.9 MG/DL; POTASSIUM SERUM 4.1 MMOL/L (3.5-5.1); SODIUM LEVEL 142 MMOL/L (136-145); TOTAL PROTEIN 6.8 G/DL (5.7-8.2); TRIGLYCERIDES LEVEL 112 MG/DL (<150)
== END ==
LOC: M LABWUC 11:36
PROVIDERS: ATTEND Nurse Practitioner Adult Health
DX: E66.01 Morbid (severe) obesity due to excess calories (principal); E78.2 Mixed hyperlipidemia

== ENCOUNTER → 2024-05-21 | Outpatient (CLI) | payer BC | LOC: M RAD 07:38 | PROVIDERS: ATTEND Nurse Practitioner Adult Health | DX: R10.13 Epigastric pain (principal); J98.11 Atelectasis; N62 Hypertrophy of breast; N28.1 Cyst of kidney, acquired; K42.9 Umbilical hernia without obstruction or gangrene; R16.1 Splenomegaly, not elsewhere classified ==

== ENCOUNTER → 2024-08-14 | Outpatient (CLI) | payer BC ==
[~2024-08-14] MED LIST changes: +E-Z-GAS II EFFERVESCENT PACKET (SODIUM BICARB./CITRIC ACID/SIMETHICONE) As Ordered ONE; +E-Z-HD 98% w/w 340GM SUSP BTL As Ordered ONE; +E-Z-PAQUE 96% w/w SUSP 176GM BTL As Ordered ONE
== END ==
LOC: M RAD 08:10
PROVIDERS: ATTEND Surgery
DX: K21.9 Gastro-esophageal reflux disease without esophagitis (principal); R93.2 Abnormal findings on diagnostic imaging of liver and biliary tract

== ENCOUNTER → 2024-10-22 | Outpatient (CLI) | payer BC ==
[~2024-10-22] MED LIST changes: -E-Z-GAS II EFFERVESCENT PACKET (SODIUM BICARB./CITRIC ACID/SIMETHICONE) As Ordered ONE; -E-Z-HD 98% w/w 340GM SUSP BTL As Ordered ONE; -E-Z-PAQUE 96% w/w SUSP 176GM BTL As Ordered ONE
[2024-10-22 12:03] LABS: BASO # 0.1 10^3/uL (0.0-0.2); BASO % 0.8 % (0.0-1.0); EOS # 0.3 10^3/uL (0.0-0.5); EOS % 3.3 % (0.0-3.0); HEMATOCRIT 41.3 % (42.0-52.0); HEMOGLOBIN 14.2 g/dl (13.5-17.5); LYMPH % 34.7 % (24.0-44.0); MEAN CORPUSCULAR HEMOGLOBIN 25.6 pg (27.0-33.0); MEAN CORPUSCULAR HGB CONC 34.4 g/dl (32.0-36.5); MEAN CORPUSCULAR VOLUME 74.5 fl (80.0-96.0); MONO # 0.6 10^3/uL (0.0-0.8); MONO % 7.2 % (2.0-8.0); NEUTROPHILS # 4.7 10^3/uL (1.5-8.5); NEUTROPHILS % 53.8 % (36.0-66.0); PLATELET COUNT, AUTOMATED 272 10^3/uL (150-450); RED BLOOD COUNT 5.54 10^6/uL (4.30-6.10); WHITE BLOOD COUNT 8.7 10^3/uL (4.0-10.0)
[2024-10-22 12:19] LABS: HEMOGLOBIN A1c 5.6 % (4.0-6.0)
[2024-10-22 12:32] LABS: ALBUMIN 4.1 G/DL (3.2-5.2); ALKALINE PHOSPHATASE 106 U/L (40-129); ALT/SGPT 33 U/L (7.0-40); AST/SGOT 47 U/L (<34); BLOOD UREA NITROGEN 15 MG/DL (9-23); CALCIUM LEVEL 9.4 MG/DL (8.5-10.1); CARBON DIOXIDE LEVEL 27 MMOL/L (20-31); CHLORIDE LEVEL 103 MMOL/L (98-107); CHOLESTEROL LEVEL 176 MG/DL (<200); CREATININE FOR GFR 1.22 MG/DL (0.70-1.30); FREE T4 0.89 NG/DL (0.89-1.76); GLOMERULAR FILTRATION RATE > 60.0 (>56); GLUCOSE, FASTING 94 MG/DL (60-100); HDL CHOLESTEROL 38.2 MG/DL (>40); LDL CHOLESTEROL 104.4 MG/DL (<100); NON-HDL-C 137.8 MG/DL; POTASSIUM SERUM 4.3 MMOL/L (3.5-5.1); SODIUM LEVEL 142 MMOL/L (136-145); THYROID STIMULATING HORMONE 2.111 uIU/ML (0.55-4.78); TOTAL PROTEIN 7.7 G/DL (5.7-8.2); TRIGLYCERIDES LEVEL 167 MG/DL (<150)
== END ==
LOC: M WUC 08:57
PROVIDERS: ATTEND Nurse Practitioner Adult Health
DX: I10 Essential (primary) hypertension (principal); E78.2 Mixed hyperlipidemia; G47.33 Obstructive sleep apnea (adult) (pediatric)

== ENCOUNTER → 2024-11-27 | Outpatient (CLI) | payer BC ==
[2024-11-27 17:45] LABS: IRON (FE) 91 UG/DL (65-175); PERCENT SATURATION 25.9 % (19.7-50.0); TOTAL IRON BINDING CAPACITY 351 UG/DL (250-425)
[2024-11-27 17:51] LABS: BLOOD UREA NITROGEN 13 MG/DL (9-23); CALCIUM LEVEL 8.3 MG/DL (8.5-10.1); CARBON DIOXIDE LEVEL 28 MMOL/L (20-31); CHLORIDE LEVEL 106 MMOL/L (98-107); CREATININE FOR GFR 1.25 MG/DL (0.70-1.30); FERRITIN 42.6 NG/ML (10.5-307.3); FOLATE 14.9 NG/ML (>5.4); GLOMERULAR FILTRATION RATE > 60.0 (>56); GLUCOSE, FASTING 90 MG/DL (60-100); POTASSIUM SERUM 4.4 MMOL/L (3.5-5.1); SODIUM LEVEL 141 MMOL/L (136-145); VITAMIN B12 LEVEL 461 PG/ML (211-911)
== END ==
LOC: M WUC 08:54
PROVIDERS: ATTEND Family Medicine
DX: I10 Essential (primary) hypertension (principal); D64.9 Anemia, unspecified

== ENCOUNTER → 2024-12-17 | Outpatient (CLI) | payer BC | LOC: M CARPUL 13:52 | PROVIDERS: ATTEND Family Medicine | DX: R09.89 Other specified symptoms and signs involving the circulatory and respiratory systems (principal) ==

== ENCOUNTER → 2024-12-18 | Outpatient (CLI) | payer BC | LOC: M RAD 08:02 | PROVIDERS: ATTEND Family Medicine | DX: I10 Essential (primary) hypertension (principal); I70.1 Atherosclerosis of renal artery ==

== ENCOUNTER → 2025-06-24 | Outpatient (CLI) | payer BC ==
[2025-06-24 13:42] LABS: BASO # 0.1 10^3/uL (0.0-0.2); BASO % 0.9 % (0.0-1.0); EOS # 0.2 10^3/uL (0.0-0.5); EOS % 3.4 % (0.0-3.0); LYMPH # 2.4 10^3/uL (1.5-5.0); LYMPH % 35.2 % (24.0-44.0); MONO # 0.5 10^3/uL (0.0-0.8); MONO % 7.3 % (2.0-8.0); NEUTROPHILS # 3.5 10^3/uL (1.5-8.5); NEUTROPHILS % 52.9 % (36.0-66.0); PLATELET COUNT, AUTOMATED 251 10^3/uL (150-450)
[2025-06-24 14:10] LABS: ALT/SGPT 39.0 U/L (7.0-40); AST/SGOT 48.0 U/L (<34); CALCIUM LEVEL 8.8 MG/DL (8.5-10.1); CARBON DIOXIDE LEVEL 29.0 MMOL/L (20-31); CHLORIDE LEVEL 104.0 MMOL/L (98-107); CHOLESTEROL LEVEL 201.0 MG/DL (<200); CHOLESTEROL RISK RATIO 5.52 (<5); CREATININE FOR GFR 1.2 MG/DL (0.70-1.30); GLOMERULAR FILTRATION RATE 73.2 (>56); LDL CHOLESTEROL 127.8 MG/DL (<100); NON-HDL-C 164.6 MG/DL; POTASSIUM SERUM 4.3 MMOL/L (3.5-5.1); SODIUM LEVEL 142.0 MMOL/L (136-145); TRIGLYCERIDES LEVEL 184.0 MG/DL (<150)
[2025-06-24 14:12] LABS: FREE T4 0.83 NG/DL (0.89-1.76)
== END ==
LOC: M WUC 08:25
PROVIDERS: ATTEND Family Medicine
DX: I10 Essential (primary) hypertension (principal); E78.2 Mixed hyperlipidemia

== ENCOUNTER → 2025-07-02 | Outpatient (CLI) | payer BC ==
[2025-07-02 18:30] LABS: FREE T4 0.9 NG/DL (0.89-1.76)
== END ==
LOC: M WUC 15:02
PROVIDERS: ATTEND Family Medicine
DX: R94.6 Abnormal results of thyroid function studies (principal)

== ENCOUNTER → 2025-09-23 | Outpatient (CLI) | payer BC ==
[2025-09-23 12:35] LABS: BASO # 0.1 10^3/uL (0.0-0.2); BASO % 0.7 % (0.0-1.0); EOS # 0.2 10^3/uL (0.0-0.5); EOS % 2.8 % (0.0-3.0); LYMPH # 2.4 10^3/uL (1.5-5.0); LYMPH % 27.8 % (24.0-44.0); MONO # 0.6 10^3/uL (0.0-0.8); MONO % 6.9 % (2.0-8.0); NEUTROPHILS # 5.3 10^3/uL (1.5-8.5); NEUTROPHILS % 61.5 % (36.0-66.0); PLATELET COUNT, AUTOMATED 257 10^3/uL (150-450)
[2025-09-23 13:08] LABS: ALT/SGPT 33.0 U/L (7.0-40); AST/SGOT 49.0 U/L (<34); CALCIUM LEVEL 9.0 MG/DL (8.5-10.1); CARBON DIOXIDE LEVEL 29.0 MMOL/L (20-31); CHLORIDE LEVEL 104.0 MMOL/L (98-107); CHOLESTEROL LEVEL 180.0 MG/DL (<200); CHOLESTEROL RISK RATIO 4.85 (<5); CREATININE FOR GFR 1.22 MG/DL (0.70-1.30); GLOMERULAR FILTRATION RATE 71.8 (>56); LDL CHOLESTEROL 111.9 MG/DL (<100); NON-HDL-C 142.9 MG/DL; POTASSIUM SERUM 4.3 MMOL/L (3.5-5.1); SODIUM LEVEL 143.0 MMOL/L (136-145); TRIGLYCERIDES LEVEL 155.0 MG/DL (<150)
[2025-09-23 13:10] LABS: FREE T4 0.8 NG/DL (0.89-1.76)
[2025-09-27 12:22] LABS: PSA % FREE 25.0 % (calc) (>25); PSA FREE 0.1 ng/mL; PSA TOTAL 0.4 ng/mL (< OR = 4.0)
== END ==
LOC: M WUC 08:39
PROVIDERS: ATTEND Family Medicine
DX: I10 Essential (primary) hypertension (principal); E78.2 Mixed hyperlipidemia; R94.6 Abnormal results of thyroid function studies; F52.21 Male erectile disorder